=== PATIENT | female | born 1950 | race Caucasian/White ===

== ENCOUNTER 2022-10-14 11:42 | Emergency (ER) | payer MEDICARE ==
[~2022-10-14 11:42] MED LIST: Iopamidol 300 61% 100 ML VIAL FS ONE
[2022-10-14] MEDS ORDERED: Ondansetron PF 4 MG/2 ML Vial ONE (12:26)
[2022-10-14] MEDS ORDERED: Morphine 4 MG/ML VIAL ONE (12:26)
[2022-10-14 12:51] LABS: ALT (SGPT) 7 U/L (8-55); AST (SGOT) 14 U/L (5-34); Albumin 4.1 g/dL (3.4-4.8); Alkaline Phosphatase 67 U/L (40-110); Anion Gap 15 mmol/L (10-20); BUN (Urea Nitrogen) 16 mg/dL (9.8-20.1); Bilirubin, Total 0.5 mg/dL (0.2-1.2); Calc. Creatinine Clearance 0 mL/min (70-130); Calcium 9.3 mg/dL (7.8-10.44); Carbon Dioxide 27 mmol/L (23-31); Chloride 104 mmol/L (98-107); Estimated GFR 45; Globulin 2.7 g/dL (2.4-3.5); Glucose 151 mg/dL (83-110); Lipase 19 U/L (8-78); Potassium 3.7 mmol/L (3.5-5.1); Protein, Total 6.8 g/dL (5.8-8.1); Sodium 142 mmol/L (136-145)
[2022-10-14 13:06] LABS: #Eosinphils 0.1 10x3/uL (0.0-0.5); #Monocytes 0.5 10x3/uL (0.0-1.1); #Neutrophils 5.2 10x3/uL (1.5-8.4); %Basophils 0.4 % (0.0-2.0); %Eosinophils 1.6 % (0.0-6.0); %Lymphocytes 21.7 % (18.0-47.0); %Monocytes 6.9 % (0.0-10.0); Hemoglobin 12.5 g/dL (12.0-15.5); Mean Corpuscular HGB CONC 31.8 g/dL (32.0-36.0); Mean Corpuscular Hemoglobin 30.2 pg (27.0-33.0); Mean Corpuscular Volume 94.9 fl (81.6-98.3); Mean Platelet Volume 11.8 fl (7.4-10.4); Platelet Count 171 10x3/uL (150-450); RBC Distribution Width 13.9 % (11.5-14.5); Red Blood Cell (RBC) Count 4.14 10x6/uL (3.90-5.03); White Blood Cell (WBC) Count 7.6 10x3/uL (3.5-10.5)
[2022-10-14 15:57] LABS: Bilirubin Neg (Negative); Blood, Urine Negative (Negative); Clarity Clear (Clear); Glucose, Urine (Dipstick) Normal (Negative); Ketone, Urine Negative (Negative); Leukocyte 25 (Negative); Nitrite Negative (Negative); Protein, Urine (Dipstick) 15 mg/dl (Neg-Trace); Urobilinogen Normal mg/dL (Less than 2)
[2022-10-14 16:17] LABS: Bacteria/HPF None Seen HPF (None Seen); CAUTI Indications for Culture Pelvic or flank pain; RBC/HPF 0-3 HPF (0-3); Squamous Epithelial 0-3 HPF (0-3); Urine Culture Reflex No No; WBC/HPF 0-3 HPF (0-3)
== END 2022-10-14 17:24 | disposition home or self-care (01) ==
LOC: CSHERS 11:42
DX: K82.4 Cholesterolosis of gallbladder (principal); K86.9 Disease of pancreas, unspecified; I10 Essential (primary) hypertension; E11.9 Type 2 diabetes mellitus without complications; F17.210 Nicotine dependence, cigarettes, uncomplicated
CPT/HCPCS: 74177; 76705; 80053; 81001; 83690; 85025; 93005; 94760; 96361; 96374; 96375; J2270; J2405; Q9967

== ENCOUNTER 2022-10-15 03:50 | Emergency (ER) | payer MEDICARE ==
[2022-10-15] MEDS ORDERED: Morphine 4 MG/ML VIAL ONE (04:14)
[2022-10-15] MEDS ORDERED: Ondansetron PF 4 MG/2 ML Vial ONE (04:15)
[2022-10-15 04:42] LABS: #Eosinphils 0.2 10x3/uL (0.0-0.5); #Monocytes 0.5 10x3/uL (0.0-1.1); #Neutrophils 4.9 10x3/uL (1.5-8.4); %Basophils 0.5 % (0.0-2.0); %Eosinophils 3.2 % (0.0-6.0); %Lymphocytes 24.2 % (18.0-47.0); %Neutrophils 64.8 % (40.0-75.0); Hemoglobin 11.8 g/dL (12.0-15.5); Mean Corpuscular HGB CONC 31.1 g/dL (32.0-36.0); Mean Corpuscular Hemoglobin 29.5 pg (27.0-33.0); Mean Corpuscular Volume 94.8 fl (81.6-98.3); Mean Platelet Volume 11.7 fl (7.4-10.4); Platelet Count 167 10x3/uL (150-450); RBC Distribution Width 13.8 % (11.5-14.5); White Blood Cell (WBC) Count 7.6 10x3/uL (3.5-10.5)
[2022-10-15 04:50] LABS: ALT (SGPT) Less than 7 U/L (8-55); AST (SGOT) 11 U/L (5-34); Albumin 3.9 g/dL (3.4-4.8); Alkaline Phosphatase 61 U/L (40-110); Anion Gap 15 mmol/L (10-20); BUN (Urea Nitrogen) 16 mg/dL (9.8-20.1); Bilirubin, Total 0.4 mg/dL (0.2-1.2); Calc. Creatinine Clearance 0 mL/min (70-130); Carbon Dioxide 25 mmol/L (23-31); Chloride 104 mmol/L (98-107); Estimated GFR 44; Globulin 2.6 g/dL (2.4-3.5); Glucose 138 mg/dL (83-110); Lipase 23 U/L (8-78); Potassium 3.6 mmol/L (3.5-5.1); Protein, Total 6.5 g/dL (5.8-8.1); Sodium 140 mmol/L (136-145)
[2022-10-15] MEDS ORDERED: fentaNYL 50 mcg/mL 1 mL Vial ONE (05:56)
== END 2022-10-15 09:00 | disposition home or self-care (01) ==
LOC: CSHERS 03:50
DX: K86.9 Disease of pancreas, unspecified (principal); D73.9 Disease of spleen, unspecified; K21.9 Gastro-esophageal reflux disease without esophagitis; E78.00 Pure hypercholesterolemia, unspecified; E11.9 Type 2 diabetes mellitus without complications; I10 Essential (primary) hypertension; Z87.891 Personal history of nicotine dependence; Z79.899 Other long term (current) drug therapy; Z79.84 Long term (current) use of oral hypoglycemic drugs
CPT/HCPCS: 76705; 80053; 83690; 85025; J3010; 96374; 96375; J2270; J2405

== ENCOUNTER 2022-11-22 08:49 | Inpatient (IN) | payer MEDICARE ==
[2022-11-22] MEDS ORDERED: methylPREDNISolone Sod Succ/PF 125 MG/2 ML VIAL ONE (09:33)
[2022-11-22] MEDS ORDERED: diphenhydrAMINE 50 MG/ML VIAL ONE (09:34)
[2022-11-22] MEDS ORDERED: Cefepime 2 GM VIAL ONE (09:34)
[2022-11-22] MEDS ORDERED: Ondansetron PF 4 MG/2 ML Vial ONE (09:34)
[2022-11-22 09:53] LABS: Mean Corpuscular HGB CONC 31.3 g/dL (32.0-36.0); Mean Corpuscular Hemoglobin 29.6 pg (27.0-33.0); Mean Corpuscular Volume 94.7 fl (81.6-98.3); Mean Platelet Volume 12.1 fl (7.4-10.4); Platelet Count 75 10x3/uL (130-400); RBC Distribution Width 13.8 % (11.5-14.5); Red Blood Cell (RBC) Count 3.38 10x6/uL (3.90-5.03); White Blood Cell (WBC) Count 3.4 10x3/uL (3.5-10.5)
[2022-11-22 09:54] LABS: MDiff Complete? YES
[2022-11-22 10:18] LABS: Carbon Dioxide 23 mmol/L (23-31); Chloride 103 mmol/L (98-107); Potassium 3.7 mmol/L (3.5-5.1); Sodium 141 mmol/L (136-145)
[2022-11-22 10:19] LABS: Albumin 3.7 g/dL (3.4-4.8); Alkaline Phosphatase 43 U/L (40-110); Anion Gap 19 mmol/L (10-20); BUN (Urea Nitrogen) 25 mg/dL (9.8-20.1); Bilirubin, Total 0.8 mg/dL (0.2-1.2); Calc. Creatinine Clearance 0 mL/min (70-130); Estimated GFR 27; Globulin 2.2 g/dL (2.4-3.5); Glucose 187 mg/dL (83-110); Protein, Total 5.9 g/dL (5.8-8.1)
[2022-11-22 10:21] LABS: ALT (SGPT) 7 U/L (8-55); AST (SGOT) 11 U/L (5-34); Lipase 5 U/L (8-78)
[2022-11-22 10:29] LABS: Band 1 % (5-11); Neutrophil 87 % (42-75)
[2022-11-22 10:30] LABS: Eosinophils 1 % (0-10); Lymphocytes 10 % (21-51); Monocytes 1 % (0-10)
[2022-11-22 10:32] LABS: Platelet Adequacy Comment Appears Decreased; RBC Morph Comment Within Normal Limits
[2022-11-22 10:35] LABS: Troponin I 0.039 ng/mL (< 0.028)
[2022-11-22] MEDS ORDERED: Vancomycin 1 GM VIAL ONE (11:54)
[2022-11-22 12:23] LABS: Bilirubin Neg (Negative); Blood, Urine 50 (Negative); Clarity Cloudy (Clear); Glucose, Urine (Dipstick) 50 mg/dL (Negative); Ketone, Urine 5 mg/dL (Negative); Leukocyte 100 (Negative); Nitrite Negative (Negative); Protein, Urine (Dipstick) 100 mg/dl (Neg-Trace)
[2022-11-22 12:39] LABS: Lactic Acid 1.1 mmol/L (0.5-2.2)
[2022-11-22] MEDS ORDERED: Acetaminophen 325 MG TAB PO PRN (12:49)
[2022-11-22] MEDS ORDERED: Ondansetron PF 4 MG/2 ML Vial IVP PRN (12:49)
[2022-11-22] MEDS ORDERED: diphenhydrAMINE 25 MG CAP PO PRN (12:51)
[2022-11-22 13:26] LABS: CAUTI Indications for Culture Pelvic or flank pain
[2022-11-22 13:27] LABS: Bacteria/HPF 3+ HPF (None Seen)
[2022-11-22 13:29] LABS: Urine Culture Reflex Yes Yes
[2022-11-22] MEDS ORDERED: Glucagon 1 MG/ML KIT IM PRN (14:06)
[2022-11-22] MEDS ORDERED: Dextrose 50% Abboject 50 ML SYRINGE SLOW IVP PRN (14:06)
[2022-11-22] MEDS ORDERED: Dextrose 5% in Water 1,000 ML IV PRN (14:06)
[2022-11-22] MEDS: Lactated Ringer's 1,000 ML IV SCH (14:17)
[2022-11-22 14:48] VITALS: BMI 34.1
[2022-11-22] MEDS: Nicotine 7 MG PATCH TD SCH (15:57)
[2022-11-22] MEDS: Heparin 5,000 UNITS/ML VIAL SC SCH ×2 (15:58→20:33)
[2022-11-22] MEDS ORDERED: Vancomycin HCl 750 MG in Sodium Chloride 0.9% 250 ML 250 ML IVPB SCH (17:00)
[2022-11-22] MEDS: HumaLOG 300 UNITS/3 ML VIAL SC PRN (17:17)
[2022-11-22] MEDS: HYDROcodone/Acetaminophen 10/325 mg Tablet PO PRN (17:23)
[2022-11-22] MEDS: clonazePAM 1 MG TAB PO SCH (20:33)
[2022-11-22] MEDS: Cefepime 1 GM in Sodium Chloride 0.9% 100 ML IVPB SCH (20:33)
[2022-11-22] MEDS: Atorvastatin Calcium 20 MG TAB PO SCH (21:00)
[2022-11-22] MEDS ORDERED: Famotidine 20 MG TAB PO SCH (21:00)
[2022-11-23] MEDS: Lactated Ringer's 1,000 ML IV SCH ×2 (00:53→08:06)
[2022-11-23 03:39] LABS: Anion Gap 14 mmol/L (10-20); BUN (Urea Nitrogen) 26 mg/dL (9.8-20.1); Calc. Creatinine Clearance 53 mL/min (70-130); Calcium 7.8 mg/dL (7.8-10.44); Carbon Dioxide 22 mmol/L (23-31); Chloride 109 mmol/L (98-107); Estimated GFR 41; Glucose 166 mg/dL (83-110); Potassium 4.2 mmol/L (3.5-5.1); Sodium 141 mmol/L (136-145)
[2022-11-23 04:06] LABS: Hematocrit 28.8 % (34.9-44.5); Hemoglobin 9.1 g/dL (12.0-15.5); Mean Corpuscular HGB CONC 31.6 g/dL (32.0-36.0); Mean Corpuscular Hemoglobin 29.4 pg (27.0-33.0); Mean Corpuscular Volume 93.2 fl (81.6-98.3); Mean Platelet Volume 12.4 fl (7.4-10.4); Platelet Count 53 10x3/uL (150-450); RBC Distribution Width 13.7 % (11.5-14.5); Red Blood Cell (RBC) Count 3.09 10x6/uL (3.90-5.03); White Blood Cell (WBC) Count 1.4 10x3/uL (3.5-10.5)
[2022-11-23 04:31] LABS: MDiff Complete? YES
[2022-11-23 05:36] LABS: Band 4 % (5-11); Lymphocytes 17 % (21-51); Monocytes 1 % (0-10); Neutrophil 78 % (42-75)
[2022-11-23] MEDS: Ferrous Sulfate 325 MG TAB PO SCH (08:10)
[2022-11-23] MEDS: Cefepime 1 GM in Sodium Chloride 0.9% 100 ML IVPB SCH ×2 (08:10→21:22)
[2022-11-23] MEDS: Sodium Chloride 0.9% 1,000 ML IV SCH ×2 (09:13→18:15)
[2022-11-23] MEDS: Nicotine 7 MG PATCH TD SCH (14:50)
[2022-11-23] MEDS: VANCOMYCIN 1.25 GM/250 ML BAG 1.25 GM in Premix Bag 1 BAG IVPB SCH (16:10)
[2022-11-23 18:04] LABS: Magnesium 0.6 mg/dL (1.6-2.6)
[2022-11-23] MEDS: Magnesium 2 GM/50 ML(in water) 2 GM in Premix Bag 1 BAG IVPB SCH ×2 (18:17→19:41)
[2022-11-23] MEDS: clonazePAM 1 MG TAB PO SCH (21:23)
[2022-11-23] MEDS: Atorvastatin Calcium 20 MG TAB PO SCH (21:23)
[2022-11-23] MEDS: HumaLOG 300 UNITS/3 ML VIAL SC PRN (21:55)
[2022-11-24 02:40] LABS: Campy jejuni + coli by PCR Negative (Negative); STEC Shiga Toxin 1+2 Negative (Negative); Salmonella spp. by PCR Negative (Negative); Shigella spp + EIEC by PCR Negative (Negative)
[2022-11-24 03:57] LABS: Anion Gap 14 mmol/L (10-20); BUN (Urea Nitrogen) 22 mg/dL (9.8-20.1); Calc. Creatinine Clearance 70 mL/min (70-130); Calcium 7.8 mg/dL (7.8-10.44); Carbon Dioxide 20 mmol/L (23-31); Chloride 114 mmol/L (98-107); Estimated GFR 57; Glucose 102 mg/dL (83-110); Potassium 3.7 mmol/L (3.5-5.1); Sodium 144 mmol/L (136-145)
[2022-11-24 04:02] LABS: Hematocrit 26.1 % (34.9-44.5); Hemoglobin 8.2 g/dL (12.0-15.5); Mean Corpuscular HGB CONC 31.4 g/dL (32.0-36.0); Mean Corpuscular Hemoglobin 29.6 pg (27.0-33.0); Mean Corpuscular Volume 94.2 fl (81.6-98.3); Mean Platelet Volume 11.8 fl (7.4-10.4); Platelet Count 35 10x3/uL (150-450); RBC Distribution Width 13.7 % (11.5-14.5); Red Blood Cell (RBC) Count 2.77 10x6/uL (3.90-5.03); White Blood Cell (WBC) Count 1.4 10x3/uL (3.5-10.5)
[2022-11-24] MEDS: Sodium Chloride 0.9% 1,000 ML IV SCH ×2 (04:37→15:37)
[2022-11-24 05:25] LABS: MDiff Complete? YES
[2022-11-24 05:26] LABS: Platelet Adequacy Comment Appears Decreased
[2022-11-24 05:27] LABS: RBC Morph Comment Within Normal Limits
[2022-11-24 05:37] LABS: Band 5 % (5-11); Eosinophils 1 % (0-10); Lymphocytes 55 % (21-51); Monocytes 2 % (0-10); Neutrophil 37 % (42-75)
[2022-11-24] MEDS ORDERED: Magnesium Sulfate 4 GM in Sodium Chloride 0.9% 250 ML 250 ML IVPB SCH (08:15)
[2022-11-24 08:23] LABS: Magnesium 1.8 mg/dL (1.6-2.6)
[2022-11-24] MEDS: Cefepime 1 GM in Sodium Chloride 0.9% 100 ML IVPB SCH ×2 (08:28→22:20)
[2022-11-24] MEDS: Magnesium 2 GM/50 ML(in water) 2 GM in Premix Bag 1 BAG IVPB SCH ×2 (08:28→08:58)
[2022-11-24] MEDS: Ferrous Sulfate 325 MG TAB PO SCH (08:29)
[2022-11-24] MEDS ORDERED: hydrOXYzine 25 MG TAB PO SCH ×2 (08:45→21:00)
[2022-11-24] MEDS ORDERED: Metoprolol Tartrate 25 MG TAB PO SCH (09:00)
[2022-11-24] MEDS ORDERED: Metoprolol Tartrate 5 MG/5 ML VIAL IVP SCH (09:30)
[2022-11-24] MEDS: Nicotine 7 MG PATCH TD SCH (15:37)
[2022-11-24] MEDS: VANCOMYCIN 1.25 GM/250 ML BAG 1.25 GM in Premix Bag 1 BAG IVPB SCH (15:37)
[2022-11-24 17:36] LABS: Vancomycin, Trough 13.1 ug/mL
[2022-11-24 17:38] LABS: Magnesium 2.5 mg/dL (1.6-2.6)
[2022-11-24] MEDS ORDERED: hydrOXYzine 25 MG TAB PO PRN (18:00)
[2022-11-24] MEDS: Metoprolol Tartrate 25 MG TAB PO SCH (22:19)
[2022-11-24] MEDS: Atorvastatin Calcium 20 MG TAB PO SCH (22:20)
[2022-11-24] MEDS: clonazePAM 1 MG TAB PO SCH (22:20)
[2022-11-24] MEDS: HYDROcodone/Acetaminophen 10/325 mg Tablet PO PRN (22:36)
[2022-11-24] MEDS ORDERED: dilTIAZem 25 MG/5 ML VIAL SLOW IVP SCH (23:45)
[2022-11-25 03:58] LABS: Hematocrit 24.5 % (34.9-44.5); Hemoglobin 7.7 g/dL (12.0-15.5); MDiff Complete? YES; Mean Corpuscular HGB CONC 31.4 g/dL (32.0-36.0); Mean Corpuscular Hemoglobin 29.6 pg (27.0-33.0); Mean Corpuscular Volume 94.2 fl (81.6-98.3); Mean Platelet Volume 12.1 fl (7.4-10.4); Platelet Count 31 10x3/uL (150-450); RBC Distribution Width 13.8 % (11.5-14.5); White Blood Cell (WBC) Count 1.5 10x3/uL (3.5-10.5)
[2022-11-25 04:09] LABS: Anion Gap 11 mmol/L (10-20); BUN (Urea Nitrogen) 18 mg/dL (9.8-20.1); Calc. Creatinine Clearance 78 mL/min (70-130); Calcium 7.6 mg/dL (7.8-10.44); Carbon Dioxide 22 mmol/L (23-31); Chloride 114 mmol/L (98-107); Estimated GFR 64; Glucose 169 mg/dL (83-110); Potassium 3.4 mmol/L (3.5-5.1); Sodium 144 mmol/L (136-145)
[2022-11-25 04:54] LABS: Platelet Adequacy Comment Appears Decreased
[2022-11-25 04:57] LABS: RBC Morph Comment Within Normal Limits
[2022-11-25 05:02] LABS: Band 4 % (5-11); Eosinophils 3 % (0-10); Lymphocytes 57 % (21-51); Monocytes 2 % (0-10); Neutrophil 34 % (42-75)
[2022-11-25] MEDS: Sodium Chloride 0.9% 1,000 ML IV SCH ×2 (06:00→10:39)
[2022-11-25] MEDS ORDERED: Potassium Chloride 20 MEQ TAB PO SCH (09:00)
[2022-11-25] MEDS: Ferrous Sulfate 325 MG TAB PO SCH (09:36)
[2022-11-25] MEDS: Metoprolol Tartrate 25 MG TAB PO SCH (09:37)
[2022-11-25] MEDS: Cefepime 1 GM in Sodium Chloride 0.9% 100 ML IVPB SCH (09:37)
[2022-11-25] MEDS: Nicotine 7 MG PATCH TD SCH (15:00)
[2022-11-25] MEDS ORDERED: Vancomycin 1.5 GRAM/300 ML BAG 1.5 GM in Premix Bag 1 BAG IVPB SCH (16:00)
[2022-11-25 20:41] VITALS: BP 156/78; TEMP 97.2
== END 2022-11-25 16:00 | disposition home or self-care (01) | DRG 871 ==
LOC: CSHERS 08:49 → CSHICU 13:46 → CSHTELE 11-24 10:03
PROVIDERS: ADMIT Internal Medicine; ATTEND Internal Medicine
DX: A41.9 Sepsis, unspecified organism (principal); D61.810 Antineoplastic chemotherapy induced pancytopenia; N39.0 Urinary tract infection, site not specified; N17.9 Acute kidney failure, unspecified; C25.9 Malignant neoplasm of pancreas, unspecified; R65.20 Severe sepsis without septic shock; I95.2 Hypotension due to drugs; T45.1X5A Adverse effect of antineoplastic and immunosuppressive drugs, initial encounter; I10 Essential (primary) hypertension; E78.5 Hyperlipidemia, unspecified; K21.9 Gastro-esophageal reflux disease without esophagitis; F17.210 Nicotine dependence, cigarettes, uncomplicated; E83.42 Hypomagnesemia; E11.9 Type 2 diabetes mellitus without complications; D70.9 Neutropenia, unspecified; Z90.710 Acquired absence of both cervix and uterus; Z96.653 Presence of artificial knee joint, bilateral; Z90.89 Acquired absence of other organs; Z82.49 Family history of ischemic heart disease and other diseases of the circulatory system; Z79.899 Other long term (current) drug therapy; Z88.5 Allergy status to narcotic agent; Z88.8 Allergy status to other drugs, medicaments and biological substances; Z71.6 Tobacco abuse counseling; F41.9 Anxiety disorder, unspecified; E86.0 Dehydration; R21 Rash and other nonspecific skin eruption; F32.A Depression, unspecified; K52.9 Noninfective gastroenteritis and colitis, unspecified
CPT/HCPCS: 36415; 36416; 71045; 76705; 80048; 80053; 80202; 81001; 83605; 83630; 83690; 83735; 84484; 85025; 85060; 87040; 87086; 87324; 87449; 87505; 93005; 93010; 93306; 94760; 94762; 96361; 96365; 96366; 96367; 96375; J0692; J1200; J1815; J2405; J2930; J3370; J3475; J3490; J7050; J7120

== ENCOUNTER 2023-03-16 11:23 | Inpatient (IN) | payer MEDICARE ==
[2023-03-16] MEDS ORDERED: Magnesium 2 GM/50 ML BAG (IN WATER) ONE (12:13)
[2023-03-16] MEDS ORDERED: Iopamidol 370 76% 100 ML VIAL ONE (12:44)
[2023-03-16 12:48] LABS: #Monocytes 0.3 10x3/uL (0.0-1.1); #Neutrophils 1.5 10x3/uL (1.5-8.4); %Basophils 0.7 % (0.0-2.0); %Eosinophils 1.1 % (0.0-6.0); %Lymphocytes 28.3 % (18.0-47.0); %Monocytes 11.3 % (0.0-10.0); %Neutrophils 53.7 % (40.0-75.0); Hematocrit 26.5 % (34.9-44.5); Hemoglobin 8.5 g/dL (12.0-15.5); Mean Corpuscular HGB CONC 32.1 g/dL (32.0-36.0); Mean Corpuscular Hemoglobin 33.3 pg (27.0-33.0); Mean Corpuscular Volume 103.9 fl (81.6-98.3); Mean Platelet Volume 11.2 fl (7.4-10.4); Platelet Count 97 10x3/uL (150-450); RBC Distribution Width 19.1 % (11.5-14.5); Red Blood Cell (RBC) Count 2.55 10x6/uL (3.90-5.03); White Blood Cell (WBC) Count 2.8 10x3/uL (3.5-10.5)
[2023-03-16 12:54] LABS: ALT (SGPT) 64 U/L (8-55); AST (SGOT) 65 U/L (5-34); Albumin 3.9 g/dL (3.4-4.8); Alkaline Phosphatase 59 U/L (40-110); Anion Gap 15 mmol/L (10-20); BUN (Urea Nitrogen) 30 mg/dL (9.8-20.1); Bilirubin, Total 0.7 mg/dL (0.2-1.2); CK (CPK) 36 U/L (29-168); Calc. Creatinine Clearance 0 mL/min (70-130); Calcium 9.6 mg/dL (7.8-10.44); Carbon Dioxide 27 mmol/L (23-31); Chloride 106 mmol/L (98-107); Estimated GFR 30; Globulin 2.2 g/dL (2.4-3.5); Glucose 72 mg/dL (83-110); Lipase 8 U/L (8-78); Potassium 4.4 mmol/L (3.5-5.1); Protein, Total 6.1 g/dL (5.8-8.1); Sodium 144 mmol/L (136-145)
[2023-03-16] MEDS ORDERED: Ipratropium/Albuterol 3 ML NEB ONE (12:56)
[2023-03-16 13:01] LABS: Troponin I 0.054 ng/mL (< 0.028)
[2023-03-16 13:14] LABS: SARS-CoV-2 NAA Rapid Test Not Detected (NotDetected)
[2023-03-16 13:18] LABS: Anisocytosis SLIGHT = 6-15 cells (100X) (0-5/hpf); Hypochromia SLIGHT = 6-15 cells (100X) (0-5/hpf); Macrocytosis SLIGHT = 6-15 cells (100X) (0-5/hpf); Polychromasia SLIGHT = 2-3 cells (100X) (0-2/hpf)
[2023-03-16 13:19] LABS: Ovalocytes SLIGHT = 2-5 cells (100X) (0-1/hpf); Platelet Adequacy Comment Appears Decreased; Stomatocytes SLIGHT = 2-5 cells (100X) (0-1/hpf); Tear Drops SLIGHT = 2-5 cells (100X) (0-1/hpf)
[2023-03-16 13:50] LABS: Actual Bicarbonate (HCO3v) 26.8 mEq/L (22-28); Analyzer IN Cardio CS ER; Base Excess 2.1 mEq/L (-2 - +2); Calcium, Ionized (venous) 1.21 mmol/L (1.16-1.32); Chloride (VBG) 106 mmol/L (98-106); Hematocrit-VBG 25 % (36.0-47.0); Hemoglobin (Hb) 8.5 g/dL (11.7-16.1); Potassium (VBG) 4.35 mmol/L (3.70-5.30); Puncture Site LRA; Sodium 140 mmol/L (133-146); pH (venous) 7.418 (7.32-7.43)
[2023-03-16] MEDS ORDERED: Acetaminophen 325 MG TAB PO PRN (15:29)
[2023-03-16] MEDS ORDERED: Ondansetron PF 4 MG/2 ML Vial IVP PRN (15:29)
[2023-03-16] MEDS ORDERED: Dextrose 50% Abboject 50 ML SYRINGE SLOW IVP PRN (15:32)
[2023-03-16] MEDS ORDERED: Dextrose 5% in Water 1,000 ML IV PRN (15:32)
[2023-03-16] MEDS ORDERED: Glucagon 1 MG/ML KIT IM PRN (15:32)
[2023-03-16 15:40] LABS: Bilirubin Neg (Negative); Blood, Urine 150 (Negative); Clarity Clear (Clear); Glucose, Urine (Dipstick) Normal (Negative); Ketone, Urine Negative (Negative); Leukocyte 25 (Negative); Nitrite Negative (Negative); Protein, Urine (Dipstick) 100 mg/dl (Neg-Trace); Urobilinogen Normal mg/dL (Less than 2)
[2023-03-16 16:28] LABS: Bacteria/HPF 2+ HPF (None Seen); CAUTI Indications for Culture Pelvic or flank pain
[2023-03-16 16:32] LABS: Urine Culture Reflex No No
[2023-03-16] MEDS: cefTRIAXone\\ROCEPHIN 1 GM in Sodium Chloride 0.9% 100 ML IVPB SCH (17:48)
[2023-03-16] MEDS: Ipratropium Bromide 2.5 ml Neb NEB SCH ×2 (19:50→23:00)
[2023-03-16] MEDS: Apixaban 5 MG TAB PO SCH (20:17)
[2023-03-16] MEDS: Gabapentin 400 MG CAP PO SCH (20:17)
[2023-03-16] MEDS: Azithromycin 500 MG in Sodium Chloride 0.9% 250 ML 250 ML IVPB SCH (20:18)
[2023-03-16] MEDS: traMADol HCl 50 MG TAB PO PRN (22:37)
[2023-03-16] MEDS: traZODone HCl 50 MG TAB PO PRN (22:39)
[2023-03-17] MEDS: Ipratropium Bromide 2.5 ml Neb NEB SCH ×6 (03:00→22:49)
[2023-03-17 03:41] LABS: Anion Gap 15 mmol/L (10-20); BUN (Urea Nitrogen) 28 mg/dL (9.8-20.1); Calc. Creatinine Clearance 41 mL/min (70-130); Calcium 8.7 mg/dL (7.8-10.44); Carbon Dioxide 25 mmol/L (23-31); Chloride 108 mmol/L (98-107); Estimated GFR 33; Potassium 4.5 mmol/L (3.5-5.1); Sodium 143 mmol/L (136-145)
[2023-03-17 03:47] LABS: Glucose 50 mg/dL (83-110)
[2023-03-17 03:52] LABS: #Eosinphils 0.1 10x3/uL (0.0-0.5); #Monocytes 0.5 10x3/uL (0.0-1.1); #Neutrophils 2.5 10x3/uL (1.5-8.4); %Basophils 0.7 % (0.0-2.0); %Eosinophils 1.7 % (0.0-6.0); %Lymphocytes 23.8 % (18.0-47.0); %Monocytes 11.9 % (0.0-10.0); %Neutrophils 58.3 % (40.0-75.0); Hematocrit 22.9 % (34.9-44.5); Hemoglobin 7.2 g/dL (12.0-15.5); Mean Corpuscular HGB CONC 31.4 g/dL (32.0-36.0); Mean Corpuscular Hemoglobin 33.5 pg (27.0-33.0); Mean Corpuscular Volume 106.5 fl (81.6-98.3); Mean Platelet Volume 12.1 fl (7.4-10.4); Platelet Count 77 10x3/uL (150-450); RBC Distribution Width 19.2 % (11.5-14.5); Red Blood Cell (RBC) Count 2.15 10x6/uL (3.90-5.03); White Blood Cell (WBC) Count 4.2 10x3/uL (3.5-10.5)
[2023-03-17] MEDS: Furosemide 20 MG/2 ML VIAL SLOW IVP SCH ×2 (05:41→14:41)
[2023-03-17] MEDS: Apixaban 5 MG TAB PO SCH ×2 (09:01→20:24)
[2023-03-17] MEDS: cefTRIAXone\\ROCEPHIN 1 GM in Sodium Chloride 0.9% 100 ML IVPB SCH (18:19)
[2023-03-17] MEDS: Azithromycin 500 MG in Sodium Chloride 0.9% 250 ML 250 ML IVPB SCH (19:10)
[2023-03-17] MEDS: traZODone HCl 50 MG TAB PO PRN (20:23)
[2023-03-17] MEDS: traMADol HCl 50 MG TAB PO PRN (20:23)
[2023-03-17] MEDS: Gabapentin 400 MG CAP PO SCH (20:23)
[2023-03-18] MEDS: Ipratropium Bromide 2.5 ml Neb NEB SCH ×6 (02:52→22:47)
[2023-03-18] MEDS: Furosemide 20 MG/2 ML VIAL SLOW IVP SCH ×2 (06:24→15:09)
[2023-03-18] MEDS: Sertraline 100 MG TAB PO SCH (09:26)
[2023-03-18] MEDS: Amlodipine 5 MG TAB PO SCH (09:27)
[2023-03-18] MEDS: Apixaban 5 MG TAB PO SCH ×2 (09:27→20:23)
[2023-03-18] MEDS: Azithromycin 500 MG in Sodium Chloride 0.9% 250 ML 250 ML IVPB SCH (18:30)
[2023-03-18] MEDS: cefTRIAXone\\ROCEPHIN 1 GM in Sodium Chloride 0.9% 100 ML IVPB SCH (18:30)
[2023-03-18] MEDS: Gabapentin 400 MG CAP PO SCH (20:22)
[2023-03-18] MEDS: traZODone HCl 50 MG TAB PO SCH (20:23)
[2023-03-19] MEDS: Ipratropium Bromide 2.5 ml Neb NEB SCH ×6 (02:10→22:40)
[2023-03-19 04:20] LABS: #Eosinphils 0.1 10x3/uL (0.0-0.5); #Monocytes 0.7 10x3/uL (0.0-1.1); #Neutrophils 3.2 10x3/uL (1.5-8.4); %Basophils 0.4 % (0.0-2.0); %Monocytes 14.8 % (0.0-10.0); %Neutrophils 63.4 % (40.0-75.0); Hematocrit 24.6 % (34.9-44.5); Hemoglobin 7.6 g/dL (12.0-15.5); Mean Corpuscular HGB CONC 30.9 g/dL (32.0-36.0); Mean Corpuscular Hemoglobin 34.5 pg (27.0-33.0); Mean Corpuscular Volume 111.8 fl (81.6-98.3); Mean Platelet Volume 12.1 fl (7.4-10.4); Platelet Count 67 10x3/uL (150-450); RBC Distribution Width 20.2 % (11.5-14.5)
[2023-03-19 04:22] LABS: Anion Gap 16 mmol/L (10-20); BUN (Urea Nitrogen) 28 mg/dL (9.8-20.1); Calc. Creatinine Clearance 34 mL/min (70-130); Calcium 8.5 mg/dL (7.8-10.44); Carbon Dioxide 25 mmol/L (23-31); Chloride 107 mmol/L (98-107); Estimated GFR 26; Glucose 86 mg/dL (83-110); Potassium 4.6 mmol/L (3.5-5.1); Sodium 143 mmol/L (136-145)
[2023-03-19] MEDS: Furosemide 20 MG/2 ML VIAL SLOW IVP SCH (06:08)
[2023-03-19] MEDS: Amlodipine 5 MG TAB PO SCH (09:34)
[2023-03-19] MEDS: Apixaban 2.5 MG TAB PO SCH ×2 (09:35→20:45)
[2023-03-19] MEDS: Sertraline 100 MG TAB PO SCH (09:35)
[2023-03-19] MEDS: cefTRIAXone\\ROCEPHIN 1 GM in Sodium Chloride 0.9% 100 ML IVPB SCH (19:53)
[2023-03-19] MEDS: Azithromycin 500 MG in Sodium Chloride 0.9% 250 ML 250 ML IVPB SCH (19:54)
[2023-03-19] MEDS: Gabapentin 400 MG CAP PO SCH (20:45)
[2023-03-19] MEDS: traZODone HCl 50 MG TAB PO SCH (20:46)
[2023-03-20] MEDS: traMADol HCl 50 MG TAB PO PRN ×2 (00:19→19:56)
[2023-03-20 03:54] LABS: Anion Gap 13 mmol/L (10-20); BUN (Urea Nitrogen) 31 mg/dL (9.8-20.1); Calc. Creatinine Clearance 35 mL/min (70-130); Calcium 8.7 mg/dL (7.8-10.44); Carbon Dioxide 28 mmol/L (23-31); Chloride 106 mmol/L (98-107); Estimated GFR 27; Glucose 91 mg/dL (83-110); Potassium 4.4 mmol/L (3.5-5.1); Sodium 143 mmol/L (136-145)
[2023-03-20 03:55] LABS: #Eosinphils 0.1 10x3/uL (0.0-0.5); #Monocytes 0.6 10x3/uL (0.0-1.1); #Neutrophils 3.7 10x3/uL (1.5-8.4); %Basophils 0.2 % (0.0-2.0); %Eosinophils 1.5 % (0.0-6.0); %Lymphocytes 14.9 % (18.0-47.0); %Monocytes 11.9 % (0.0-10.0); %Neutrophils 70.2 % (40.0-75.0); Hematocrit 23.8 % (34.9-44.5); Hemoglobin 7.2 g/dL (12.0-15.5); Mean Corpuscular Volume 109.7 fl (81.6-98.3); Mean Platelet Volume 12.2 fl (7.4-10.4); Platelet Count 65 10x3/uL (150-450); RBC Distribution Width 20.6 % (11.5-14.5); Red Blood Cell (RBC) Count 2.06 10x6/uL (3.90-5.03); White Blood Cell (WBC) Count 5.3 10x3/uL (3.5-10.5)
[2023-03-20 04:10] LABS: Large Platelets SLIGHT (None Seen); Platelet Adequacy Comment Appears Decreased
[2023-03-20] MEDS: Ipratropium Bromide 2.5 ml Neb NEB SCH ×6 (05:06→23:32)
[2023-03-20] MEDS: Amlodipine 5 MG TAB PO SCH (08:34)
[2023-03-20] MEDS: Sertraline 100 MG TAB PO SCH (08:46)
[2023-03-20] MEDS: Apixaban 2.5 MG TAB PO SCH ×2 (08:46→20:08)
[2023-03-20] MEDS: cefTRIAXone\\ROCEPHIN 1 GM in Sodium Chloride 0.9% 100 ML IVPB SCH (17:40)
[2023-03-20] MEDS: Azithromycin 500 MG in Sodium Chloride 0.9% 250 ML 250 ML IVPB SCH (19:05)
[2023-03-20] MEDS: traZODone HCl 50 MG TAB PO SCH (20:08)
[2023-03-20] MEDS: Gabapentin 400 MG CAP PO SCH (20:08)
[2023-03-21 03:38] LABS: #Eosinphils 0.1 10x3/uL (0.0-0.5); #Monocytes 0.6 10x3/uL (0.0-1.1); #Neutrophils 2.7 10x3/uL (1.5-8.4); %Basophils 0.5 % (0.0-2.0); %Eosinophils 1.7 % (0.0-6.0); %Lymphocytes 17.9 % (18.0-47.0); %Monocytes 14.8 % (0.0-10.0); %Neutrophils 64.1 % (40.0-75.0); Hematocrit 24.6 % (34.9-44.5); Hemoglobin 7.7 g/dL (12.0-15.5); Mean Corpuscular HGB CONC 31.3 g/dL (32.0-36.0); Mean Corpuscular Volume 111.8 fl (81.6-98.3); Mean Platelet Volume 11.8 fl (7.4-10.4); Platelet Count 71 10x3/uL (150-450); RBC Distribution Width 20.8 % (11.5-14.5); White Blood Cell (WBC) Count 4.1 10x3/uL (3.5-10.5)
[2023-03-21 04:13] LABS: Anion Gap 12 mmol/L (10-20); BUN (Urea Nitrogen) 34 mg/dL (9.8-20.1); Calc. Creatinine Clearance 37 mL/min (70-130); Carbon Dioxide 29 mmol/L (23-31); Chloride 106 mmol/L (98-107); Estimated GFR 29; Glucose 87 mg/dL (83-110); Potassium 4.5 mmol/L (3.5-5.1); Sodium 142 mmol/L (136-145)
[2023-03-21 04:40] LABS: Macrocytosis MODERATE=16-30 cells (100X) (0-5/hpf); Ovalocytes SLIGHT = 2-5 cells (100X) (0-1/hpf); Platelet Adequacy Comment Appears Decreased
[2023-03-21] MEDS: traMADol HCl 50 MG TAB PO PRN ×3 (04:52→20:31)
[2023-03-21] MEDS: Ipratropium Bromide 2.5 ml Neb NEB SCH ×6 (05:46→22:37)
[2023-03-21] MEDS ORDERED: Ipratropium Bromide 2.5 ml Neb NEB SCH (06:30)
[2023-03-21] MEDS ORDERED: Furosemide 20 MG/2 ML VIAL SLOW IVP SCH (06:30)
[2023-03-21] MEDS: Amlodipine 5 MG TAB PO SCH (09:06)
[2023-03-21] MEDS: Sertraline 100 MG TAB PO SCH (09:06)
[2023-03-21] MEDS: Apixaban 2.5 MG TAB PO SCH ×2 (09:06→20:30)
[2023-03-21] MEDS: Furosemide 40 MG/4 ML VIAL SLOW IVP SCH (13:21)
[2023-03-21] MEDS: Albumin 25% 25 GM/100 ML BOT IVPB SCH ×2 (13:21→19:45)
[2023-03-21] MEDS: cefTRIAXone\\ROCEPHIN 1 GM in Sodium Chloride 0.9% 100 ML IVPB SCH (17:27)
[2023-03-21] MEDS: Azithromycin 500 MG in Sodium Chloride 0.9% 250 ML 250 ML IVPB SCH (18:06)
[2023-03-21] MEDS: Gabapentin 400 MG CAP PO SCH (20:30)
[2023-03-21] MEDS: traZODone HCl 50 MG TAB PO SCH (20:30)
[2023-03-22] MEDS: Albumin 25% 25 GM/100 ML BOT IVPB SCH ×2 (00:42→06:17)
[2023-03-22] MEDS: Ipratropium Bromide 2.5 ml Neb NEB SCH ×6 (02:32→22:30)
[2023-03-22 03:35] LABS: #Eosinphils 0.1 10x3/uL (0.0-0.5); #Monocytes 0.5 10x3/uL (0.0-1.1); #Neutrophils 2.6 10x3/uL (1.5-8.4); %Basophils 0.3 % (0.0-2.0); %Eosinophils 2.6 % (0.0-6.0); %Lymphocytes 16.9 % (18.0-47.0); %Monocytes 12.8 % (0.0-10.0); %Neutrophils 67.1 % (40.0-75.0); Hematocrit 21.4 % (34.9-44.5); Hemoglobin 6.4 g/dL (12.0-15.5); Mean Corpuscular HGB CONC 29.9 g/dL (32.0-36.0); Mean Corpuscular Hemoglobin 33.7 pg (27.0-33.0); Mean Corpuscular Volume 112.6 fl (81.6-98.3); Mean Platelet Volume 12.1 fl (7.4-10.4); Platelet Count 78 10x3/uL (150-450); White Blood Cell (WBC) Count 3.9 10x3/uL (3.5-10.5)
[2023-03-22 04:00] LABS: Macrocytosis MODERATE=16-30 cells (100X) (0-5/hpf); Ovalocytes MODERATE= 6-15 cells (100X) (0-1/hpf)
[2023-03-22 04:01] LABS: Platelet Adequacy Comment Appears Decreased; Tear Drops SLIGHT = 2-5 cells (100X) (0-1/hpf)
[2023-03-22 04:15] LABS: Anion Gap 14 mmol/L (10-20); BUN (Urea Nitrogen) 32 mg/dL (9.8-20.1); Calc. Creatinine Clearance 35 mL/min (70-130); Calcium 9.2 mg/dL (7.8-10.44); Carbon Dioxide 28 mmol/L (23-31); Chloride 103 mmol/L (98-107); Estimated GFR 27; Glucose 95 mg/dL (83-110); Potassium 4.3 mmol/L (3.5-5.1); Sodium 141 mmol/L (136-145)
[2023-03-22] MEDS: Furosemide 40 MG/4 ML VIAL SLOW IVP SCH ×2 (06:17→14:09)
[2023-03-22] MEDS ORDERED: Dexamethasone 20 MG/5 ML VIAL SLOW IVP SCH (09:00)
[2023-03-22] MEDS: Sertraline 100 MG TAB PO SCH (09:24)
[2023-03-22] MEDS: Amlodipine 5 MG TAB PO SCH (09:25)
[2023-03-22] MEDS: cefTRIAXone\\ROCEPHIN 1 GM in Sodium Chloride 0.9% 100 ML IVPB SCH (16:43)
[2023-03-22] MEDS: HumaLOG 300 UNITS/3 ML VIAL SC PRN (16:59)
[2023-03-22] MEDS: Azithromycin 500 MG in Sodium Chloride 0.9% 250 ML 250 ML IVPB SCH (18:06)
[2023-03-22] MEDS ORDERED: Nitroglycerin 2% Ointment 1 INCH/1 GM Packet TOP SCH (20:30)
[2023-03-22] MEDS: traMADol HCl 50 MG TAB PO PRN (20:37)
[2023-03-22] MEDS: Gabapentin 400 MG CAP PO SCH (20:38)
[2023-03-22] MEDS: Dexamethasone 10 MG/ML VIAL SLOW IVP SCH (20:39)
[2023-03-22] MEDS: traZODone HCl 50 MG TAB PO SCH (20:39)
[2023-03-23] MEDS: Ipratropium Bromide 2.5 ml Neb NEB SCH ×6 (02:30→22:46)
[2023-03-23 03:48] LABS: Anion Gap 18 mmol/L (10-20); BUN (Urea Nitrogen) 37 mg/dL (9.8-20.1); Calc. Creatinine Clearance 34 mL/min (70-130); Calcium 9.7 mg/dL (7.8-10.44); Carbon Dioxide 28 mmol/L (23-31); Chloride 101 mmol/L (98-107); Estimated GFR 26; Glucose 146 mg/dL (83-110); Potassium 4.8 mmol/L (3.5-5.1); Sodium 142 mmol/L (136-145)
[2023-03-23 03:58] LABS: #Monocytes 0.1 10x3/uL (0.0-1.1); #Neutrophils 2.8 10x3/uL (1.5-8.4); %Lymphocytes 8.1 % (18.0-47.0); %Monocytes 3.4 % (0.0-10.0); %Neutrophils 87.9 % (40.0-75.0); Hematocrit 25.8 % (34.9-44.5); Hemoglobin 8.1 g/dL (12.0-15.5); Mean Corpuscular HGB CONC 31.4 g/dL (32.0-36.0); Mean Corpuscular Hemoglobin 32.4 pg (27.0-33.0); Mean Corpuscular Volume 103.2 fl (81.6-98.3); Mean Platelet Volume 11.9 fl (7.4-10.4); Platelet Count 101 10x3/uL (150-450); RBC Distribution Width 22.2 % (11.5-14.5); White Blood Cell (WBC) Count 3.2 10x3/uL (3.5-10.5)
[2023-03-23 04:41] LABS: Platelet Adequacy Comment Appears Decreased
[2023-03-23 04:44] LABS: Anisocytosis SLIGHT = 6-15 cells (100X) (0-5/hpf); Macrocytosis SLIGHT = 6-15 cells (100X) (0-5/hpf); Microcytosis SLIGHT = 6-15 cells (100X) (0-5/hpf)
[2023-03-23] MEDS: Furosemide 40 MG/4 ML VIAL SLOW IVP SCH ×2 (06:01→14:28)
[2023-03-23] MEDS: Dexamethasone 10 MG/ML VIAL SLOW IVP SCH ×2 (08:04→20:23)
[2023-03-23] MEDS: Isosorbide Mononitrate 30 MG ER.TAB PO SCH (08:04)
[2023-03-23] MEDS: Sertraline 100 MG TAB PO SCH ×2 (08:05→08:30)
[2023-03-23] MEDS: Amlodipine 10 MG TAB PO SCH (08:12)
[2023-03-23] MEDS: cefTRIAXone\\ROCEPHIN 1 GM in Sodium Chloride 0.9% 100 ML IVPB SCH (16:53)
[2023-03-23] MEDS: Azithromycin 500 MG in Sodium Chloride 0.9% 250 ML 250 ML IVPB SCH (17:35)
[2023-03-23] MEDS: Gabapentin 400 MG CAP PO SCH (20:22)
[2023-03-23] MEDS: traZODone HCl 50 MG TAB PO SCH (20:23)
[2023-03-23] MEDS: traMADol HCl 50 MG TAB PO PRN (20:30)
[2023-03-24] MEDS: Ipratropium Bromide 2.5 ml Neb NEB SCH ×6 (03:16→19:00)
[2023-03-24 03:48] LABS: #Monocytes 0.2 10x3/uL (0.0-1.1); #Neutrophils 4.6 10x3/uL (1.5-8.4); %Lymphocytes 6.5 % (18.0-47.0); %Monocytes 3.4 % (0.0-10.0); %Neutrophils 89.9 % (40.0-75.0); Hematocrit 24.9 % (34.9-44.5); Hemoglobin 8.3 g/dL (12.0-15.5); Mean Corpuscular HGB CONC 33.3 g/dL (32.0-36.0); Mean Corpuscular Hemoglobin 34.2 pg (27.0-33.0); Mean Corpuscular Volume 102.5 fl (81.6-98.3); Mean Platelet Volume 12.1 fl (7.4-10.4); Platelet Count 131 10x3/uL (150-450); RBC Distribution Width 20.9 % (11.5-14.5); Red Blood Cell (RBC) Count 2.43 10x6/uL (3.90-5.03); White Blood Cell (WBC) Count 5.1 10x3/uL (3.5-10.5)
[2023-03-24 03:59] LABS: Anion Gap 17 mmol/L (10-20); BUN (Urea Nitrogen) 48 mg/dL (9.8-20.1); Calc. Creatinine Clearance 34 mL/min (70-130); Calcium 9.9 mg/dL (7.8-10.44); Carbon Dioxide 31 mmol/L (23-31); Chloride 99 mmol/L (98-107); Estimated GFR 24; Glucose 144 mg/dL (83-110); Potassium 4.5 mmol/L (3.5-5.1); Sodium 142 mmol/L (136-145)
[2023-03-24] MEDS: Furosemide 40 MG/4 ML VIAL SLOW IVP SCH ×2 (06:17→15:44)
[2023-03-24] MEDS: Isosorbide Mononitrate 30 MG ER.TAB PO SCH (09:12)
[2023-03-24] MEDS: Amlodipine 10 MG TAB PO SCH (09:13)
[2023-03-24] MEDS: Heparin 5,000 UNITS/ML VIAL SC SCH ×3 (09:13→21:00)
[2023-03-24] MEDS: Sertraline 100 MG TAB PO SCH (09:14)
[2023-03-24] MEDS: traMADol HCl 50 MG TAB PO PRN ×2 (09:14→22:09)
[2023-03-24] MEDS: Dexamethasone 10 MG/ML VIAL SLOW IVP SCH (10:29)
[2023-03-24] MEDS: traZODone HCl 50 MG TAB PO SCH (21:00)
[2023-03-24] MEDS: Gabapentin 400 MG CAP PO SCH (21:00)
[2023-03-24] MEDS: HumaLOG 300 UNITS/3 ML VIAL SC PRN (22:11)
[2023-03-25] MEDS: Ipratropium Bromide 2.5 ml Neb NEB SCH ×4 (01:44→20:35)
[2023-03-25 03:59] LABS: #Monocytes 0.7 10x3/uL (0.0-1.1); #Neutrophils 4.2 10x3/uL (1.5-8.4); %Eosinophils 0.2 % (0.0-6.0); %Lymphocytes 12.5 % (18.0-47.0); %Monocytes 11.9 % (0.0-10.0); Hematocrit 25.8 % (34.9-44.5); Hemoglobin 8.2 g/dL (12.0-15.5); Mean Corpuscular HGB CONC 31.8 g/dL (32.0-36.0); Mean Corpuscular Hemoglobin 32.4 pg (27.0-33.0); Mean Platelet Volume 11.5 fl (7.4-10.4); Platelet Count 145 10x3/uL (150-450); RBC Distribution Width 20.5 % (11.5-14.5); Red Blood Cell (RBC) Count 2.53 10x6/uL (3.90-5.03); White Blood Cell (WBC) Count 5.6 10x3/uL (3.5-10.5)
[2023-03-25 04:10] LABS: Anion Gap 16 mmol/L (10-20); BUN (Urea Nitrogen) 53 mg/dL (9.8-20.1); Calc. Creatinine Clearance 32 mL/min (70-130); Calcium 9.5 mg/dL (7.8-10.44); Carbon Dioxide 35 mmol/L (23-31); Chloride 98 mmol/L (98-107); Estimated GFR 26; Glucose 76 mg/dL (83-110); Sodium 145 mmol/L (136-145)
[2023-03-25] MEDS: Furosemide 40 MG/4 ML VIAL SLOW IVP SCH (06:04)
[2023-03-25] MEDS ORDERED: Electrolyte Replacement Protocol 1 EACH FS SCH (08:45)
[2023-03-25] MEDS ORDERED: Dexamethasone 10 MG/ML VIAL SLOW IVP SCH (09:00)
[2023-03-25] MEDS: Isosorbide Mononitrate 30 MG ER.TAB PO SCH (09:08)
[2023-03-25] MEDS: Amlodipine 10 MG TAB PO SCH (09:08)
[2023-03-25] MEDS: Polyethylene Glycol 3350 17 GM Packet PO SCH (09:08)
[2023-03-25] MEDS: Senokot S 8.6-50 MG TAB PO SCH ×2 (09:08→20:28)
[2023-03-25] MEDS: Sertraline 100 MG TAB PO SCH (09:09)
[2023-03-25] MEDS: Heparin 5,000 UNITS/ML VIAL SC SCH (09:09)
[2023-03-25] MEDS ORDERED: Dexamethasone 4 mg/ml Vial SLOW IVP SCH (10:00)
[2023-03-25] MEDS ORDERED: Magnesium 2 GM/50 ML(in water) 2 GM in Premix 1 BAG IVPB SCH (12:00)
[2023-03-25] MEDS: traMADol HCl 50 MG TAB PO PRN (13:45)
[2023-03-25] MEDS ORDERED: traMADol HCl 50 MG TAB PO SCH (18:30)
[2023-03-25] MEDS: traMADol HCl 50 MG TAB PO SCH (18:45)
[2023-03-25 18:56] VITALS: BMI 32.8
[2023-03-25] MEDS: Gabapentin 400 MG CAP PO SCH (20:28)
[2023-03-25] MEDS: Apixaban 5 MG TAB PO SCH (20:28)
[2023-03-25] MEDS: traZODone HCl 50 MG TAB PO SCH (20:29)
[2023-03-25] MEDS: HumaLOG 300 UNITS/3 ML VIAL SC PRN (22:32)
[2023-03-26] MEDS: traMADol HCl 50 MG TAB PO SCH ×3 (02:08→15:26)
[2023-03-26] MEDS: Ipratropium Bromide 2.5 ml Neb NEB SCH ×4 (03:25→20:54)
[2023-03-26 06:03] LABS: #Monocytes 0.6 10x3/uL (0.0-1.1); #Neutrophils 3.5 10x3/uL (1.5-8.4); %Eosinophils 0.2 % (0.0-6.0); %Lymphocytes 16.5 % (18.0-47.0); %Monocytes 12.4 % (0.0-10.0); %Neutrophils 69.7 % (40.0-75.0); Hematocrit 26.1 % (34.9-44.5); Hemoglobin 8.4 g/dL (12.0-15.5); Mean Corpuscular HGB CONC 32.2 g/dL (32.0-36.0); Mean Corpuscular Hemoglobin 33.3 pg (27.0-33.0); Mean Corpuscular Volume 103.6 fl (81.6-98.3); Mean Platelet Volume 11.9 fl (7.4-10.4); Platelet Count 150 10x3/uL (150-450); RBC Distribution Width 20.3 % (11.5-14.5); Red Blood Cell (RBC) Count 2.52 10x6/uL (3.90-5.03); White Blood Cell (WBC) Count 5.1 10x3/uL (3.5-10.5)
[2023-03-26 06:36] LABS: Phosphorus 3.2 mg/dL (2.3-4.7)
[2023-03-26 06:49] LABS: Anion Gap 15 mmol/L (10-20); BUN (Urea Nitrogen) 56 mg/dL (9.8-20.1); Calc. Creatinine Clearance 36 mL/min (70-130); Calcium 9.3 mg/dL (7.8-10.44); Carbon Dioxide 35 mmol/L (23-31); Chloride 96 mmol/L (98-107); Estimated GFR 28; Glucose 96 mg/dL (83-110); Magnesium 2.6 mg/dL (1.6-2.6); Potassium 3.7 mmol/L (3.5-5.1); Sodium 142 mmol/L (136-145)
[2023-03-26] MEDS ORDERED: Ipratropium Bromide 2.5 ml Neb ONE ×2 (07:03→12:38)
[2023-03-26] MEDS: Apixaban 5 MG TAB PO SCH ×2 (08:04→20:56)
[2023-03-26] MEDS: Senokot S 8.6-50 MG TAB PO SCH ×2 (08:04→20:57)
[2023-03-26] MEDS: Amlodipine 10 MG TAB PO SCH (08:04)
[2023-03-26] MEDS: Isosorbide Mononitrate 30 MG ER.TAB PO SCH (08:05)
[2023-03-26] MEDS: Sertraline 100 MG TAB PO SCH (08:05)
[2023-03-26] MEDS: Dexamethasone 1 MG TAB PO SCH (08:06)
[2023-03-26] MEDS: Dexamethasone 4 MG TAB PO SCH (08:06)
[2023-03-26] MEDS: Polyethylene Glycol 3350 17 GM Packet PO SCH (08:07)
[2023-03-26] MEDS ORDERED: Lorazepam 1 MG TAB PO SCH (11:00)
[2023-03-26] MEDS ORDERED: Lorazepam 2 MG/ML VIAL SLOW IVP SCH (12:00)
[2023-03-26] MEDS ORDERED: Milk Of Magnesia 30 ML UDCUP PO SCH (12:00)
[2023-03-26 17:44] LABS: Analyzer IN Cardio ER; Critical Notified Time 1745; Puncture Site OTHER; pH (venous) 7.418 (7.32-7.43)
[2023-03-26 17:45] LABS: Actual Bicarbonate (HCO3v) 36.4 mEq/L (22-28); Base Excess 10.3 mEq/L (-2 - +2); Hematocrit-VBG 30 % (36.0-47.0)
[2023-03-26 17:46] LABS: Hemoglobin (Hb) 10.2 g/dL (11.7-16.1)
[2023-03-26] MEDS: Gabapentin 400 MG CAP PO SCH (20:56)
[2023-03-26] MEDS ORDERED: Metoprolol Tartrate 25 MG TAB PO SCH (21:00)
[2023-03-26] MEDS ORDERED: Atorvastatin Calcium 40 MG TAB PO SCH (21:00)
[2023-03-26] MEDS: HumaLOG 300 UNITS/3 ML VIAL SC PRN (21:00)
[2023-03-27] MEDS: Ipratropium Bromide 2.5 ml Neb NEB SCH (03:26)
[2023-03-27 03:57] LABS: #Eosinphils 0.1 10x3/uL (0.0-0.5); #Monocytes 0.7 10x3/uL (0.0-1.1); #Neutrophils 3.3 10x3/uL (1.5-8.4); %Basophils 0.2 % (0.0-2.0); %Eosinophils 1.2 % (0.0-6.0); %Lymphocytes 17.5 % (18.0-47.0); %Monocytes 14.6 % (0.0-10.0); %Neutrophils 64.5 % (40.0-75.0); Hematocrit 28.8 % (34.9-44.5); Hemoglobin 9.1 g/dL (12.0-15.5); Mean Corpuscular HGB CONC 31.6 g/dL (32.0-36.0); Mean Corpuscular Hemoglobin 33.1 pg (27.0-33.0); Mean Corpuscular Volume 104.7 fl (81.6-98.3); Mean Platelet Volume 11.4 fl (7.4-10.4); Platelet Count 161 10x3/uL (150-450); RBC Distribution Width 19.7 % (11.5-14.5); Red Blood Cell (RBC) Count 2.75 10x6/uL (3.90-5.03); White Blood Cell (WBC) Count 5.1 10x3/uL (3.5-10.5)
[2023-03-27 04:20] LABS: Anion Gap 15 mmol/L (10-20); BUN (Urea Nitrogen) 53 mg/dL (9.8-20.1); Calc. Creatinine Clearance 42 mL/min (70-130); Calcium 9.5 mg/dL (7.8-10.44); Carbon Dioxide 33 mmol/L (23-31); Chloride 99 mmol/L (98-107); Estimated GFR 33; Glucose 61 mg/dL (83-110); Magnesium 2.7 mg/dL (1.6-2.6); Potassium 4.2 mmol/L (3.5-5.1); Sodium 143 mmol/L (136-145)
[2023-03-27 05:52] LABS: Actual Bicarbonate (HCO3v) 38.1 mEq/L (22-28); Analyzer IN Cardio CS ER; Base Excess 11.9 mEq/L (-2 - +2); Calcium, Ionized (venous) 1.13 mmol/L (1.16-1.32); Chloride (VBG) 97 mmol/L (98-106); Hematocrit-VBG 30 % (36.0-47.0); Hemoglobin (Hb) 10.2 g/dL (11.7-16.1); Potassium (VBG) 4.23 mmol/L (3.70-5.30); Puncture Site Other Site; RapidComm Collect By CBN; Sodium 142 mmol/L (133-146); pH (venous) 7.429 (7.32-7.43)
[2023-03-27] MEDS ORDERED: Ipratropium Bromide 2.5 ml Neb ONE (06:45)
[2023-03-27 08:22] VITALS: BP 180/79; TEMP 97.9
[2023-03-27] MEDS: Sertraline 100 MG TAB PO SCH (08:41)
[2023-03-27] MEDS: Dexamethasone 4 MG TAB PO SCH (08:41)
[2023-03-27] MEDS: Senokot S 8.6-50 MG TAB PO SCH (08:41)
[2023-03-27] MEDS: Dexamethasone 1 MG TAB PO SCH (08:41)
[2023-03-27] MEDS: Apixaban 5 MG TAB PO SCH (08:42)
[2023-03-27] MEDS: Polyethylene Glycol 3350 17 GM Packet PO SCH (08:42)
[2023-03-27] MEDS: Amlodipine 10 MG TAB PO SCH (08:42)
== END 2023-03-27 09:39 | disposition home or self-care (01) | DRG 193 ==
LOC: CSHERS 11:23 → CSHTELE 15:36 → CSHICU 03-22 11:16 → CSHTELE 03-25 14:42
PROVIDERS: ADMIT Internal Medicine; ATTEND Family Medicine
PROC: 4A133R1 Monitoring of Arterial Saturation, Peripheral, Percutaneous Approach (ICD-10-PCS; 2023-03-16)
PROC: 30233N1 Transfusion of Nonautologous Red Blood Cells into Peripheral Vein, Percutaneous Approach (ICD-10-PCS; principal; 2023-03-22)
DX: J18.9 Pneumonia, unspecified organism (principal); G93.41 Metabolic encephalopathy; I50.33 Acute on chronic diastolic (congestive) heart failure; J96.01 Acute respiratory failure with hypoxia; J44.1 Chronic obstructive pulmonary disease with (acute) exacerbation; I13.0 Hypertensive heart and chronic kidney disease with heart failure and stage 1 through stage 4 chronic kidney disease, or unspecified chronic kidney disease; G25.81 Restless legs syndrome; K21.9 Gastro-esophageal reflux disease without esophagitis; E11.22 Type 2 diabetes mellitus with diabetic chronic kidney disease; N18.30 Chronic kidney disease, stage 3 unspecified; I27.20 Pulmonary hypertension, unspecified; K59.00 Constipation, unspecified; D63.1 Anemia in chronic kidney disease; D63.0 Anemia in neoplastic disease; D69.6 Thrombocytopenia, unspecified; G47.33 Obstructive sleep apnea (adult) (pediatric); Z96.652 Presence of left artificial knee joint; Z88.8 Allergy status to other drugs, medicaments and biological substances; Z88.5 Allergy status to narcotic agent; Z79.84 Long term (current) use of oral hypoglycemic drugs; Z79.899 Other long term (current) drug therapy; Z79.2 Long term (current) use of antibiotics; Z90.710 Acquired absence of both cervix and uterus; Z98.1 Arthrodesis status; Z87.891 Personal history of nicotine dependence; Z86.711 Personal history of pulmonary embolism; Z85.07 Personal history of malignant neoplasm of pancreas; Z11.52 Encounter for screening for COVID-19
CPT/HCPCS: 36415; 36416; 36430; 36600; 70450; 70551; 71045; 71275; 80048; 80053; 81001; 82550; 82805; 83605; 83690; 83735; 83880; 84100; 84145; 84484; 85025; 85379; 86850; 86900; 86901; 87040; 93005; 93010; 93306; 93880; 94640; 94760; 94762; J0456; J0696; J1100; J1644; J1815; J1940; J2060; J2405; J3475; J3490; J7050; J7611; J7620; J8540; P9016; P9047; Q9967; U0002

== ENCOUNTER 2023-04-19 03:17 | Inpatient (IN) | payer MEDICARE ==
[2023-04-19 03:52] LABS: #Eosinphils 0.2 10x3/uL (0.0-0.5); #Monocytes 0.6 10x3/uL (0.0-1.1); #Neutrophils 3.8 10x3/uL (1.5-8.4); %Basophils 0.3 % (0.0-2.0); %Eosinophils 2.9 % (0.0-6.0); %Lymphocytes 24.2 % (18.0-47.0); %Neutrophils 62.9 % (40.0-75.0); Hematocrit 23.5 % (34.9-44.5); Hemoglobin 7.5 g/dL (12.0-15.5); Mean Corpuscular HGB CONC 31.9 g/dL (32.0-36.0); Mean Corpuscular Hemoglobin 33.3 pg (27.0-33.0); Mean Corpuscular Volume 104.4 fl (81.6-98.3); Mean Platelet Volume 11.3 fl (7.4-10.4); Platelet Count 198 10x3/uL (150-450); RBC Distribution Width 18.2 % (11.5-14.5); Red Blood Cell (RBC) Count 2.25 10x6/uL (3.90-5.03); White Blood Cell (WBC) Count 6.1 10x3/uL (3.5-10.5)
[2023-04-19 03:58] LABS: Actual Bicarbonate (HCO3a) 25.9 mEq/L (22-28); Analyzer IN Cardio CS ER; Base Excess (BEa) 1.8 mEq/L (-2.0 to +3.0); CO2 Tension 38.8 mmHg (35.0-45.0); Calcium, Ionized (arterial) 1.13 mmol/L (1.12-1.30); Carboxyhemoglobin (COHb) 0.3 gm% (0.0-3.0); Hematocrit-ABG 24 % (36.0-47.0); Hemoglobin (Hb) 8.3 g/dL (12.0-16.0); O2 Tension (PaO2), arterial 97.5 mmHg (> 70.0); Potassium - ABG Lab 3.35 mmol/L (3.70-5.30); Puncture Site LRA; pH, Arterial 7.443 (7.35-7.45)
[2023-04-19 04:11] LABS: ALT (SGPT) 13 U/L (8-55); AST (SGOT) 24 U/L (5-34); Albumin 3.4 g/dL (3.4-4.8); Alkaline Phosphatase 53 U/L (40-110); Anion Gap 18 mmol/L (10-20); BUN (Urea Nitrogen) 33 mg/dL (9.8-20.1); Bilirubin, Total 0.6 mg/dL (0.2-1.2); Calc. Creatinine Clearance 0 mL/min (70-130); Calcium 8.5 mg/dL (7.8-10.44); Carbon Dioxide 24 mmol/L (23-31); Chloride 108 mmol/L (98-107); Estimated GFR 13; Globulin 2.1 g/dL (2.4-3.5); Glucose 136 mg/dL (83-110); Lipase 7 U/L (8-78); Magnesium 1.5 mg/dL (1.6-2.6); Potassium 3.7 mmol/L (3.5-5.1); Protein, Total 5.5 g/dL (5.8-8.1); Sodium 146 mmol/L (136-145)
[2023-04-19 04:17] LABS: Troponin I 0.078 ng/mL (< 0.028)
[2023-04-19 04:34] LABS: INR-International Normal Ratio 1.1; PTT 30.8 sec (22.0-33.0); Prothrombin Time 12.1 sec (9.5-12.1)
[2023-04-19] MEDS ORDERED: Cefepime 2 GM VIAL ONE (04:53)
[2023-04-19] MEDS ORDERED: Furosemide 40 MG (4 mL) VIAL ONE (04:53)
[2023-04-19 05:03] LABS: SARS-CoV-2 NAA Rapid Test Not Detected (NotDetected)
[2023-04-19] MEDS ORDERED: Vancomycin 1 GM VIAL ONE (05:51)
[2023-04-19] MEDS ORDERED: Glucagon 1 MG/ML KIT IM PRN (05:54)
[2023-04-19] MEDS ORDERED: Dextrose 50% Abboject 50 ML SYRINGE SLOW IVP PRN (05:54)
[2023-04-19] MEDS ORDERED: Calcium Carbonate 500 MG ChewTAB PO PRN (05:54)
[2023-04-19] MEDS ORDERED: Guaifenesin DM 100-10/5 ML UDCUP PO PRN (05:54)
[2023-04-19] MEDS ORDERED: Senokot S 8.6-50 MG TAB PO PRN (05:54)
[2023-04-19] MEDS ORDERED: Dextrose 5% in Water 1,000 ML IV PRN (05:54)
[2023-04-19] MEDS ORDERED: Ondansetron PF 4 MG/2 ML Vial IVP PRN (05:54)
[2023-04-19] MEDS ORDERED: Acetaminophen 325 MG TAB PO PRN (05:54)
[2023-04-19] MEDS ORDERED: Metamucil PACK PO PRN (05:59)
[2023-04-19] MEDS ORDERED: Magnesium 2 GM/50 ML(in water) 2 GM in Premix 1 BAG IVPB SCH (06:00)
[2023-04-19] MEDS ORDERED: Sodium Chloride 0.9% 500 ML IV SCH (06:00)
[2023-04-19] MEDS ORDERED: Ipratropium/Albuterol 3 ML NEB NEB PRN (06:05)
[2023-04-19] MEDS ORDERED: clonazePAM 0.5 MG TAB PO SCH (06:15)
[2023-04-19] MEDS ORDERED: clonazePAM 0.5 MG TAB ONE (08:15)
[2023-04-19] MEDS ORDERED: Magnesium 2 GM/50 ML BAG (IN WATER) ONE (08:16)
[2023-04-19 08:31] LABS: Troponin I 0.087 ng/mL (< 0.028)
[2023-04-19] MEDS ORDERED: Amlodipine 5 MG TAB ONE (08:40)
[2023-04-19] MEDS ORDERED: Apixaban 5 MG TAB ONE (08:41)
[2023-04-19] MEDS ORDERED: Atorvastatin Calcium 40 MG TAB ONE (08:43)
[2023-04-19] MEDS: Mometasone/Formoterol 200/5 60 PUFF INH SCH (09:36)
[2023-04-19] MEDS: Amlodipine 5 MG TAB PO SCH (09:37)
[2023-04-19] MEDS: Apixaban 5 MG TAB PO SCH ×2 (09:37→22:07)
[2023-04-19] MEDS: Multivitamin W/ Minerals 1 TAB PO SCH (09:38)
[2023-04-19] MEDS: Ferrous Sulfate 325 MG TAB PO SCH (09:38)
[2023-04-19] MEDS: Atorvastatin Calcium 40 MG TAB PO SCH (09:38)
[2023-04-19 13:08] LABS: Hemoglobin A1c 5.8 % (4.0-6.0)
[2023-04-19 13:31] LABS: Troponin I 0.099 ng/mL (< 0.028)
[2023-04-19 13:35] LABS: Anion Gap 15 mmol/L (10-20); BUN (Urea Nitrogen) 33 mg/dL (9.8-20.1); Calc. Creatinine Clearance 0 mL/min (70-130); Carbon Dioxide 27 mmol/L (23-31); Chloride 109 mmol/L (98-107); Estimated GFR 13; Glucose 69 mg/dL (83-110); Magnesium 2.1 mg/dL (1.6-2.6); Potassium 3.7 mmol/L (3.5-5.1); Sodium 147 mmol/L (136-145)
[2023-04-19] MEDS ORDERED: Sodium Chloride 0.45% 1,000 ML IV SCH (14:15)
[2023-04-19 15:21] LABS: Hematocrit 22.8 % (34.9-44.5); Hemoglobin 7.4 g/dL (12.0-15.5)
[2023-04-19 16:53] LABS: Bilirubin Neg (Negative); Blood, Urine 50 (Negative); Clarity Clear (Clear); Glucose, Urine (Dipstick) Normal (Negative); Ketone, Urine Negative (Negative); Leukocyte 500 (Negative); Nitrite Negative (Negative); Protein, Urine (Dipstick) 100 mg/dl (Neg-Trace); Specific Gravity, Urine 1.015 (1.005-1.030); Urobilinogen Normal mg/dL (Less than 2)
[2023-04-19 17:15] LABS: Squamous Epithelial 0-3 HPF (0-3)
[2023-04-19 17:17] LABS: Bacteria/HPF 1+ HPF (None Seen); Renal Epithelial 0-3 HPF (None Seen)
[2023-04-19 18:52] VITALS: BMI 82.7
[2023-04-19] MEDS: Dextrose 5% in Water 1,000 ML IV SCH (19:48)
[2023-04-20 05:02] LABS: #Eosinphils 0.2 10x3/uL (0.0-0.5); #Monocytes 0.5 10x3/uL (0.0-1.1); #Neutrophils 2.7 10x3/uL (1.5-8.4); %Basophils 0.5 % (0.0-2.0); %Eosinophils 4.2 % (0.0-6.0); %Lymphocytes 20.4 % (18.0-47.0); %Neutrophils 62.4 % (40.0-75.0); Hematocrit 22.5 % (34.9-44.5); Hemoglobin 7.1 g/dL (12.0-15.5); Mean Corpuscular HGB CONC 31.6 g/dL (32.0-36.0); Mean Corpuscular Hemoglobin 33.6 pg (27.0-33.0); Mean Corpuscular Volume 106.6 fl (81.6-98.3); Mean Platelet Volume 11.6 fl (7.4-10.4); Platelet Count 172 10x3/uL (150-450); RBC Distribution Width 18.1 % (11.5-14.5); Red Blood Cell (RBC) Count 2.11 10x6/uL (3.90-5.03); White Blood Cell (WBC) Count 4.3 10x3/uL (3.5-10.5)
[2023-04-20] MEDS: Cefepime 1 GM in Sodium Chloride 0.9% 100 ML IVPB SCH (05:16)
[2023-04-20 05:28] LABS: Anion Gap 16 mmol/L (10-20); BUN (Urea Nitrogen) 30 mg/dL (9.8-20.1); Calc. Creatinine Clearance 54 mL/min (70-130); Calcium 8.9 mg/dL (7.8-10.44); Carbon Dioxide 25 mmol/L (23-31); Chloride 107 mmol/L (98-107); Estimated GFR 15; Glucose 98 mg/dL (83-110); Magnesium 1.9 mg/dL (1.6-2.6); Potassium 3.5 mmol/L (3.5-5.1); Sodium 144 mmol/L (136-145)
[2023-04-20 06:42] LABS: Vancomycin, Random 6.5 ug/mL (See Comment)
[2023-04-20] MEDS: Mometasone/Formoterol 200/5 60 PUFF INH SCH (06:51)
[2023-04-20] MEDS ORDERED: hydrALAZINE 20 MG/ML VIAL SLOW IVP PRN (09:00)
[2023-04-20] MEDS ORDERED: Carvedilol 6.25 MG TAB PO SCH (09:00)
[2023-04-20] MEDS: Ferrous Sulfate 325 MG TAB PO SCH (11:24)
[2023-04-20] MEDS: Atorvastatin Calcium 40 MG TAB PO SCH (11:24)
[2023-04-20] MEDS: Multivitamin W/ Minerals 1 TAB PO SCH (11:25)
[2023-04-20] MEDS: Amlodipine 5 MG TAB PO SCH (11:25)
[2023-04-20] MEDS: Dextrose 5% in Water 1,000 ML IV SCH ×2 (16:46→16:48)
[2023-04-20] MEDS: Carvedilol 6.25 MG TAB PO SCH (18:30)
[2023-04-21] MEDS: Apixaban 2.5 MG TAB PO SCH ×3 (01:34→21:53)
[2023-04-21] MEDS: Cefepime 1 GM in Sodium Chloride 0.9% 100 ML IVPB SCH ×2 (05:52→17:53)
[2023-04-21] MEDS: Mometasone/Formoterol 200/5 60 PUFF INH SCH (07:10)
[2023-04-21 07:16] LABS: #Eosinphils 0.2 10x3/uL (0.0-0.5); #Monocytes 0.8 10x3/uL (0.0-1.1); #Neutrophils 4.7 10x3/uL (1.5-8.4); %Basophils 0.4 % (0.0-2.0); %Eosinophils 2.6 % (0.0-6.0); %Monocytes 12.1 % (0.0-10.0); %Neutrophils 66.8 % (40.0-75.0); Hematocrit 27.3 % (34.9-44.5); Hemoglobin 8.9 g/dL (12.0-15.5); Mean Corpuscular HGB CONC 32.6 g/dL (32.0-36.0); Mean Corpuscular Hemoglobin 32.2 pg (27.0-33.0); Mean Corpuscular Volume 98.9 fl (81.6-98.3); Mean Platelet Volume 10.5 fl (7.4-10.4); Platelet Count 189 10x3/uL (150-450); RBC Distribution Width 19.6 % (11.5-14.5); Red Blood Cell (RBC) Count 2.76 10x6/uL (3.90-5.03)
[2023-04-21 07:39] LABS: ALT (SGPT) 11 U/L (8-55); AST (SGOT) 23 U/L (5-34); Albumin 3.3 g/dL (3.4-4.8); Alkaline Phosphatase 58 U/L (40-110); Anion Gap 17 mmol/L (10-20); BUN (Urea Nitrogen) 29 mg/dL (9.8-20.1); Calc. Creatinine Clearance 60 mL/min (70-130); Calcium 8.9 mg/dL (7.8-10.44); Carbon Dioxide 23 mmol/L (23-31); Chloride 105 mmol/L (98-107); Estimated GFR 17; Globulin 2.6 g/dL (2.4-3.5); Glucose 115 mg/dL (83-110); Potassium 3.7 mmol/L (3.5-5.1); Protein, Total 5.9 g/dL (5.8-8.1); Sodium 141 mmol/L (136-145)
[2023-04-21] MEDS: Amlodipine 5 MG TAB PO SCH (10:11)
[2023-04-21] MEDS: hydrALAZINE 25 MG TAB PO SCH ×3 (10:11→21:53)
[2023-04-21] MEDS: Atorvastatin Calcium 40 MG TAB PO SCH (10:11)
[2023-04-21] MEDS: Carvedilol 6.25 MG TAB PO SCH ×2 (10:12→16:24)
[2023-04-21] MEDS: Ferrous Sulfate 325 MG TAB PO SCH (10:13)
[2023-04-21] MEDS: Multivitamin W/ Minerals 1 TAB PO SCH (10:13)
[2023-04-21] MEDS: Dextrose 5% in Water 1,000 ML IV SCH ×2 (17:17→21:53)
[2023-04-22] MEDS: Cefepime 1 GM in Sodium Chloride 0.9% 100 ML IVPB SCH ×2 (05:51→17:02)
[2023-04-22 06:06] LABS: #Eosinphils 0.2 10x3/uL (0.0-0.5); #Monocytes 0.7 10x3/uL (0.0-1.1); #Neutrophils 2.9 10x3/uL (1.5-8.4); %Basophils 0.6 % (0.0-2.0); %Eosinophils 4.3 % (0.0-6.0); %Lymphocytes 19.5 % (18.0-47.0); %Monocytes 14.4 % (0.0-10.0); %Neutrophils 60.6 % (40.0-75.0); Hematocrit 23.7 % (34.9-44.5); Hemoglobin 8.1 g/dL (12.0-15.5); Mean Corpuscular HGB CONC 34.2 g/dL (32.0-36.0); Mean Corpuscular Hemoglobin 34.5 pg (27.0-33.0); Mean Corpuscular Volume 100.9 fl (81.6-98.3); Mean Platelet Volume 11.4 fl (7.4-10.4); Platelet Count 166 10x3/uL (150-450); RBC Distribution Width 18.9 % (11.5-14.5); Red Blood Cell (RBC) Count 2.35 10x6/uL (3.90-5.03); White Blood Cell (WBC) Count 4.9 10x3/uL (3.5-10.5)
[2023-04-22 06:20] LABS: Anion Gap 12 mmol/L (10-20); BUN (Urea Nitrogen) 29 mg/dL (9.8-20.1); Calc. Creatinine Clearance 66 mL/min (70-130); Calcium 8.4 mg/dL (7.8-10.44); Carbon Dioxide 26 mmol/L (23-31); Chloride 104 mmol/L (98-107); Estimated GFR 19; Glucose 90 mg/dL (83-110); Magnesium 1.7 mg/dL (1.6-2.6); Phosphorus 3.7 mg/dL (2.3-4.7); Potassium 3.2 mmol/L (3.5-5.1); Sodium 139 mmol/L (136-145)
[2023-04-22] MEDS: Carvedilol 6.25 MG TAB PO SCH ×2 (08:37→16:39)
[2023-04-22] MEDS: Atorvastatin Calcium 40 MG TAB PO SCH (08:37)
[2023-04-22] MEDS: Amlodipine 5 MG TAB PO SCH (08:38)
[2023-04-22] MEDS: Multivitamin W/ Minerals 1 TAB PO SCH (08:38)
[2023-04-22] MEDS: Apixaban 2.5 MG TAB PO SCH ×2 (08:38→21:32)
[2023-04-22] MEDS: hydrALAZINE 25 MG TAB PO SCH ×3 (08:38→21:32)
[2023-04-22] MEDS: Ferrous Sulfate 325 MG TAB PO SCH (08:38)
[2023-04-22] MEDS ORDERED: Amlodipine 5 MG TAB PO SCH (09:00)
[2023-04-22] MEDS ORDERED: Potassium Chloride 20 MEQ TAB PO SCH (09:00)
[2023-04-22] MEDS: Mometasone/Formoterol 200/5 60 PUFF INH SCH (09:29)
[2023-04-22] MEDS: Dextrose 5% in Water 1,000 ML IV SCH ×2 (15:28→22:27)
[2023-04-23] MEDS: Cefepime 1 GM in Sodium Chloride 0.9% 100 ML IVPB SCH ×2 (05:26→17:24)
[2023-04-23 06:10] LABS: #Eosinphils 0.2 10x3/uL (0.0-0.5); #Monocytes 0.8 10x3/uL (0.0-1.1); #Neutrophils 3.7 10x3/uL (1.5-8.4); %Basophils 0.3 % (0.0-2.0); %Eosinophils 2.6 % (0.0-6.0); %Lymphocytes 17.5 % (18.0-47.0); %Monocytes 14.7 % (0.0-10.0); %Neutrophils 64.4 % (40.0-75.0); Hematocrit 24.5 % (34.9-44.5); Mean Corpuscular HGB CONC 32.7 g/dL (32.0-36.0); Mean Corpuscular Hemoglobin 33.1 pg (27.0-33.0); Mean Corpuscular Volume 101.2 fl (81.6-98.3); Mean Platelet Volume 11.6 fl (7.4-10.4); Platelet Count 164 10x3/uL (150-450); RBC Distribution Width 18.2 % (11.5-14.5); Red Blood Cell (RBC) Count 2.42 10x6/uL (3.90-5.03); White Blood Cell (WBC) Count 5.7 10x3/uL (3.5-10.5)
[2023-04-23 06:23] LABS: Anion Gap 12 mmol/L (10-20); BUN (Urea Nitrogen) 29 mg/dL (9.8-20.1); Calc. Creatinine Clearance 72 mL/min (70-130); Calcium 8.5 mg/dL (7.8-10.44); Carbon Dioxide 26 mmol/L (23-31); Chloride 105 mmol/L (98-107); Estimated GFR 22; Glucose 95 mg/dL (83-110); Magnesium 1.6 mg/dL (1.6-2.6); Potassium 3.7 mmol/L (3.5-5.1); Sodium 139 mmol/L (136-145)
[2023-04-23 06:31] LABS: Phosphorus 3.9 mg/dL (2.3-4.7)
[2023-04-23] MEDS: Carvedilol 6.25 MG TAB PO SCH ×2 (09:13→17:24)
[2023-04-23] MEDS: Atorvastatin Calcium 40 MG TAB PO SCH (09:13)
[2023-04-23] MEDS: Ferrous Sulfate 325 MG TAB PO SCH (09:13)
[2023-04-23] MEDS: Multivitamin W/ Minerals 1 TAB PO SCH (09:13)
[2023-04-23] MEDS: Amlodipine 10 MG TAB PO SCH (09:13)
[2023-04-23] MEDS: hydrALAZINE 25 MG TAB PO SCH ×3 (09:13→21:17)
[2023-04-23] MEDS: Apixaban 2.5 MG TAB PO SCH ×2 (09:14→21:17)
[2023-04-23] MEDS: Mometasone/Formoterol 200/5 60 PUFF INH SCH (10:25)
[2023-04-23] MEDS: Dextrose 5% in Water 1,000 ML IV SCH (13:51)
[2023-04-24] MEDS: Dextrose 5% in Water 1,000 ML IV SCH ×2 (01:37→16:44)
[2023-04-24] MEDS: Cefepime 1 GM in Sodium Chloride 0.9% 100 ML IVPB SCH ×2 (05:28→18:26)
[2023-04-24 05:34] LABS: #Eosinphils 0.2 10x3/uL (0.0-0.5); #Monocytes 0.8 10x3/uL (0.0-1.1); #Neutrophils 3.9 10x3/uL (1.5-8.4); %Basophils 0.5 % (0.0-2.0); %Eosinophils 2.7 % (0.0-6.0); %Lymphocytes 16.9 % (18.0-47.0); %Monocytes 13.6 % (0.0-10.0); %Neutrophils 65.6 % (40.0-75.0); Hematocrit 25.8 % (34.9-44.5); Hemoglobin 8.5 g/dL (12.0-15.5); Mean Corpuscular HGB CONC 32.9 g/dL (32.0-36.0); Mean Corpuscular Hemoglobin 33.3 pg (27.0-33.0); Mean Corpuscular Volume 101.2 fl (81.6-98.3); Mean Platelet Volume 11.1 fl (7.4-10.4); Platelet Count 156 10x3/uL (150-450); RBC Distribution Width 17.7 % (11.5-14.5); Red Blood Cell (RBC) Count 2.55 10x6/uL (3.90-5.03)
[2023-04-24 05:53] LABS: Anion Gap 13 mmol/L (10-20); BUN (Urea Nitrogen) 31 mg/dL (9.8-20.1); Calc. Creatinine Clearance 74 mL/min (70-130); Calcium 8.9 mg/dL (7.8-10.44); Carbon Dioxide 23 mmol/L (23-31); Chloride 104 mmol/L (98-107); Estimated GFR 22; Glucose 98 mg/dL (83-110); Magnesium 1.7 mg/dL (1.6-2.6); Phosphorus 4.1 mg/dL (2.3-4.7); Potassium 3.8 mmol/L (3.5-5.1); Sodium 136 mmol/L (136-145)
[2023-04-24] MEDS: Carvedilol 6.25 MG TAB PO SCH ×2 (08:45→18:26)
[2023-04-24] MEDS: Multivitamin W/ Minerals 1 TAB PO SCH (08:45)
[2023-04-24] MEDS: Apixaban 2.5 MG TAB PO SCH ×2 (08:45→20:55)
[2023-04-24] MEDS: Ferrous Sulfate 325 MG TAB PO SCH (08:45)
[2023-04-24] MEDS: hydrALAZINE 25 MG TAB PO SCH ×3 (08:45→20:55)
[2023-04-24] MEDS: Amlodipine 10 MG TAB PO SCH (08:45)
[2023-04-24] MEDS: Mometasone/Formoterol 200/5 60 PUFF INH SCH (16:18)
[2023-04-25 05:49] LABS: #Eosinphils 0.1 10x3/uL (0.0-0.5); #Monocytes 0.6 10x3/uL (0.0-1.1); #Neutrophils 3.1 10x3/uL (1.5-8.4); %Basophils 0.6 % (0.0-2.0); %Eosinophils 2.8 % (0.0-6.0); %Lymphocytes 18.2 % (18.0-47.0); %Monocytes 11.8 % (0.0-10.0); %Neutrophils 65.7 % (40.0-75.0); Hematocrit 23.9 % (34.9-44.5); Hemoglobin 7.8 g/dL (12.0-15.5); Mean Corpuscular HGB CONC 32.6 g/dL (32.0-36.0); Mean Corpuscular Hemoglobin 32.8 pg (27.0-33.0); Mean Corpuscular Volume 100.4 fl (81.6-98.3); Mean Platelet Volume 11.2 fl (7.4-10.4); Platelet Count 158 10x3/uL (150-450); RBC Distribution Width 17.4 % (11.5-14.5); Red Blood Cell (RBC) Count 2.38 10x6/uL (3.90-5.03); White Blood Cell (WBC) Count 4.7 10x3/uL (3.5-10.5)
[2023-04-25 05:58] LABS: Anion Gap 13 mmol/L (10-20); BUN (Urea Nitrogen) 30 mg/dL (9.8-20.1); Calc. Creatinine Clearance 78 mL/min (70-130); Calcium 8.9 mg/dL (7.8-10.44); Carbon Dioxide 24 mmol/L (23-31); Chloride 105 mmol/L (98-107); Estimated GFR 24; Glucose 98 mg/dL (83-110); Potassium 3.6 mmol/L (3.5-5.1); Sodium 138 mmol/L (136-145)
[2023-04-25] MEDS: Cefepime 1 GM in Sodium Chloride 0.9% 100 ML IVPB SCH ×2 (06:27→18:42)
[2023-04-25] MEDS: Dextrose 5% in Water 1,000 ML IV SCH ×2 (06:29→18:42)
[2023-04-25] MEDS: Mometasone/Formoterol 200/5 60 PUFF INH SCH (06:50)
[2023-04-25] MEDS: Carvedilol 6.25 MG TAB PO SCH ×2 (08:28→16:14)
[2023-04-25] MEDS: Multivitamin W/ Minerals 1 TAB PO SCH (08:28)
[2023-04-25] MEDS: hydrALAZINE 25 MG TAB PO SCH ×3 (08:29→20:56)
[2023-04-25] MEDS: Amlodipine 10 MG TAB PO SCH (08:29)
[2023-04-25] MEDS: Ferrous Sulfate 325 MG TAB PO SCH (08:29)
[2023-04-25] MEDS: Atorvastatin Calcium 40 MG TAB PO SCH (08:29)
[2023-04-25] MEDS: Apixaban 2.5 MG TAB PO SCH ×2 (08:30→20:56)
[2023-04-26 04:36] LABS: Anion Gap 13 mmol/L (10-20); BUN (Urea Nitrogen) 32 mg/dL (9.8-20.1); Calc. Creatinine Clearance 74 mL/min (70-130); Calcium 8.7 mg/dL (7.8-10.44); Carbon Dioxide 22 mmol/L (23-31); Chloride 103 mmol/L (98-107); Estimated GFR 22; Glucose 93 mg/dL (83-110); Potassium 3.6 mmol/L (3.5-5.1); Sodium 134 mmol/L (136-145)
[2023-04-26] MEDS: Mometasone/Formoterol 200/5 60 PUFF INH SCH (07:30)
[2023-04-26] MEDS: Ferrous Sulfate 325 MG TAB PO SCH (09:12)
[2023-04-26] MEDS: Apixaban 2.5 MG TAB PO SCH ×2 (09:12→22:09)
[2023-04-26] MEDS: Multivitamin W/ Minerals 1 TAB PO SCH (09:12)
[2023-04-26] MEDS: hydrALAZINE 25 MG TAB PO SCH ×3 (09:12→22:24)
[2023-04-26] MEDS: Amlodipine 10 MG TAB PO SCH (09:12)
[2023-04-26] MEDS: Carvedilol 6.25 MG TAB PO SCH ×2 (09:13→17:19)
[2023-04-26] MEDS: Atorvastatin Calcium 40 MG TAB PO SCH (09:13)
[2023-04-26] MEDS: Zinc Sulfate 220 MG CAP PO SCH (09:13)
[2023-04-26] MEDS ORDERED: Gabapentin 100 MG CAP PO PRN (17:06)
[2023-04-26] MEDS: Dicyclomine 10 MG CAP PO SCH ×2 (17:19→22:09)
[2023-04-26] MEDS ORDERED: rOPINIRole HCl 0.25 MG TAB PO SCH (17:30)
[2023-04-27] MEDS: Mometasone/Formoterol 200/5 60 PUFF INH SCH (07:25)
[2023-04-27] MEDS: Ferrous Sulfate 325 MG TAB PO SCH (08:24)
[2023-04-27] MEDS: Dicyclomine 10 MG CAP PO SCH ×4 (08:25→20:50)
[2023-04-27] MEDS: Carvedilol 6.25 MG TAB PO SCH ×2 (08:25→17:38)
[2023-04-27] MEDS: Multivitamin W/ Minerals 1 TAB PO SCH (08:25)
[2023-04-27] MEDS: Apixaban 2.5 MG TAB PO SCH ×2 (08:25→20:50)
[2023-04-27] MEDS: Amlodipine 10 MG TAB PO SCH (08:26)
[2023-04-27] MEDS: hydrALAZINE 25 MG TAB PO SCH ×3 (08:26→20:50)
[2023-04-27] MEDS: Atorvastatin Calcium 40 MG TAB PO SCH (08:26)
[2023-04-27] MEDS: Zinc Sulfate 220 MG CAP PO SCH (08:27)
[2023-04-27] MEDS ORDERED: Moisturizing Cream (Eucerin) 113 GM JAR TOP PRN (12:00)
[2023-04-27] MEDS ORDERED: Sodium Chloride 0.65% Nasal 44 ML BOT EA NARE PRN (12:00)
[2023-04-27] MEDS ORDERED: Loperamide HCl 2 MG CAP PO PRN ×2 (12:00)
[2023-04-27] MEDS ORDERED: Benzonatate 100 MG CAP PO PRN (12:00)
[2023-04-27] MEDS ORDERED: Artificial Tear Sol 15 ML BOT EA EYE PRN (12:00)
[2023-04-27] MEDS ORDERED: Loratadine 10 MG TAB PO PRN (12:00)
[2023-04-27] MEDS ORDERED: Lactated Ringer's 1,000 ML IV SCH (12:45)
[2023-04-27] MEDS ORDERED: rOPINIRole HCl 0.25 MG TAB PO SCH (21:00)
[2023-04-28] MEDS: Mometasone/Formoterol 200/5 60 PUFF INH SCH (07:45)
[2023-04-28] MEDS: Carvedilol 6.25 MG TAB PO SCH (09:35)
[2023-04-28] MEDS: Apixaban 2.5 MG TAB PO SCH (09:36)
[2023-04-28] MEDS: Amlodipine 10 MG TAB PO SCH (09:37)
[2023-04-28] MEDS: Atorvastatin Calcium 40 MG TAB PO SCH (09:38)
[2023-04-28] MEDS: hydrALAZINE 25 MG TAB PO SCH (09:38)
[2023-04-28] MEDS: Ferrous Sulfate 325 MG TAB PO SCH (09:39)
[2023-04-28] MEDS: Multivitamin W/ Minerals 1 TAB PO SCH (09:39)
[2023-04-28] MEDS: Zinc Sulfate 220 MG CAP PO SCH (09:39)
[2023-04-28] MEDS: Dicyclomine 10 MG CAP PO SCH (09:39)
[2023-04-28 12:30] VITALS: BP 128/60; TEMP 97.3
== END 2023-04-28 12:20 | disposition hospice, home (50) | DRG 193 ==
LOC: CSHERS 03:17 → CSHERHOLD 05:54 → CSHTELE 16:39
PROVIDERS: ADMIT Student in an Organized Health Care Education/Training Program; ATTEND Internal Medicine
DX: J18.9 Pneumonia, unspecified organism (principal); G93.41 Metabolic encephalopathy; C25.9 Malignant neoplasm of pancreas, unspecified; G25.81 Restless legs syndrome; K21.9 Gastro-esophageal reflux disease without esophagitis; E78.5 Hyperlipidemia, unspecified; E11.9 Type 2 diabetes mellitus without complications; I10 Essential (primary) hypertension; Z90.710 Acquired absence of both cervix and uterus; Z98.890 Other specified postprocedural states; Z96.653 Presence of artificial knee joint, bilateral; Z87.891 Personal history of nicotine dependence; Z88.5 Allergy status to narcotic agent; Z88.8 Allergy status to other drugs, medicaments and biological substances; E83.42 Hypomagnesemia
CPT/HCPCS: 36415; 36416; 36430; 36600; 70450; 70551; 71045; 74150; 76770; 80048; 80053; 80202; 81001; 82140; 82550; 82805; 83036; 83605; 83690; 83735; 83880; 84100; 84145; 84146; 84443; 84484; 85025; 85610; 85730; 86850; 86900; 86901; 87040; 87077; 87149; 87186; 93005; 93010; 94760; 94762; 96374; 96375; J0360; J0692; J1940; J3370; J3475; J3490; J7030; J7070; J7120; P9016